=== PATIENT | female | born 1990 | race Asian ===

== ENCOUNTER 2021-10-08 20:20 | Emergency (ER) | payer OTHER ==
[2021-10-08 20:28] VITALS: BP 115/83; PULSE 69; TEMP 97.9; BMI 32.9
[2021-10-08] MEDS ORDERED: CLINDAMYCIN HCL 300 MG CAPSULE PO ONE (21:10)
[2021-10-08] MEDS ORDERED: DEXAMETHASONE 4 MG TABLET (FP) PO ONE (21:15)
[2021-10-08] MEDS ORDERED: DEXAMETHASONE 4 MG TABLET (FP) ONE (21:15)
[2021-10-08] MEDS ORDERED: CLINDAMYCIN HCL 150 MG CAPSULE (FP) ONE (21:15)
== END 2021-10-08 21:43 | disposition home or self-care (01) ==
LOC: JER 20:20
DX: J03.90 Acute tonsillitis, unspecified (principal)
CPT/HCPCS: 87651; 99283-25